=== PATIENT | male | born 1980 | race Caucasian/White ===

== ENCOUNTER 2021-02-19 21:37 | Emergency (ER) | payer OTHER ==
[2021-02-19 23:03] LABS: HEMOGLOBIN 15.8 gm/dl (14.0-17.5); RED BLOOD COUNT 5.33 M/UL (4.20-5.50); WHITE BLOOD COUNT 9.5 K/UL (4.5-11.0)
[2021-02-19 23:37] LABS: BUN/CREATININE RATIO 18 (0-10)
[2021-02-20] MEDS ORDERED: ASPIRIN CHEWABL81 MG PO (00:18)
== END 2021-02-20 00:28 | disposition home or self-care (01) ==
LOC: ER1 21:37
PROVIDERS: Family Medicine
DX: R20.2 Paresthesia of skin (principal); F17.210 Nicotine dependence, cigarettes, uncomplicated
CPT/HCPCS: 71046; 72040; 80053; 82550; 82553; 83874; 84484; 85025; 93005; 99284

== ENCOUNTER 2021-05-14 22:15 | Emergency (ER) | payer OTHER ==
[~2021-05-14 22:15] MED LIST: ASPIRIN CHEWABL81 MG PO
[2021-05-14] MEDS ORDERED: LISINOPRIL10 MG PO (23:30)
== END 2021-05-14 23:40 | disposition home or self-care (01) ==
LOC: ER1 22:15
DX: Z76.0 Encounter for issue of repeat prescription (principal); I10 Essential (primary) hypertension; F17.200 Nicotine dependence, unspecified, uncomplicated
CPT/HCPCS: 99281